=== PATIENT | male | born 1980 | race Caucasian/White ===

== ENCOUNTER 2023-05-16 10:52 | Emergency (ER) | payer MEDICAID ==
[~2023-05-16] VITALS: Ht 182.9 cm; Wt 89.0 kg
[2023-05-16 11:09] VITALS: BP 129/76
[2023-05-16] MEDS ORDERED: BUPR1FIL7 SL ×2 (12:04)
== END 2023-05-16 12:12 | disposition home or self-care (01) ==
LOC: ER 10:54
DX: F11.10 Opioid abuse, uncomplicated (principal); Z76.0 Encounter for issue of repeat prescription
CPT/HCPCS: 99281

== ENCOUNTER 2023-10-28 02:02 | Emergency (ER) | payer MEDICAID ==
[~2023-10-28] VITALS: Ht 182.9 cm; Wt 80.0 kg
[2023-10-28 02:12] VITALS: BP 119/82; PULSE 100; RESP 18; TEMP 98.2; O2SAT 100
[2023-10-28 02:41] LABS: BASOPHILS % (AUTO) 0.6 % (0-1); EOSINOPHILS # (AUTO) 0.1 X10'3 (0-0.9); EOSINOPHILS % (AUTO) 1.6 % (0-6); HEMATOCRIT 44.4 % (42.0-52.0); LYMPHOCYTES # (AUTO) 2.3 X10'3 (1.1-4.8); LYMPHOCYTES % (AUTO) 27.6 % (21-51); MEAN CORPUSCULAR HEMOGLOBIN 32.7 PG (27.0-31.0); MEAN CORPUSCULAR HGB CONC 33.7 g/dL (33.0-36.5); MEAN CORPUSCULAR VOLUME 96.9 FL (78-98); MONOCYTES # (AUTO) 0.9 X10'3 (0-0.9); MONOCYTES % (AUTO) 11.4 % (2-12); NEUTROPHILS # (AUTO) 4.9 X10'3 (1.8-7.7); NEUTROPHILS % (AUTO) 58.8 % (42-75); PLATELET COUNT 234 X10'3 (140-440); RED BLOOD COUNT 4.58 X10'6 (4.70-6.10); RED CELL DISTRIBUTION WIDTH 15.2 % (11.5-14.5); WHITE BLOOD COUNT 8.3 X10'3 (4.5-11.0)
[2023-10-28 02:47] LABS: ALANINE AMINOTRANSFERASE 77 U/L (12-78); ALBUMIN 4.1 G/DL (3.4-5.0); ALBUMIN/GLOBULIN RATIO 1.2 (1.1-1.5); ALKALINE PHOSPHATASE 135 IU/L (46-116); ANION GAP 11 (8-16); ASPARTATE AMINO TRANSFERASE 79 U/L (10-37); BILIRUBIN,TOTAL 0.4 MG/DL (0.1-1.0); BLOOD UREA NITROGEN 17 MG/DL (7-18); BUN/CREATININE RATIO 18.1 (10.0-20.0); CHLORIDE 101 MMOL/L (99-107); CREATININE 0.94 MG/DL (0.60-1.10); GLUCOSE 94 MG/DL (70-104); POTASSIUM 3.9 MMOL/L (3.5-5.1); SODIUM 139 MMOL/L (135-145); TOTAL CARBON DIOXIDE 26.8 MMOL/L (24-32); TOTAL PROTEIN 7.6 G/DL (6.4-8.2); eCRCL 111 ML/MIN; eGFR 88 ML/MIN
[2023-10-28 02:54] LABS: PRO BRAIN NATRIURETIC PEPTIDE 61 PG/ML (0-125)
== END 2023-10-28 04:08 | disposition left against medical advice (07) ==
LOC: ER 02:02
DX: R07.89 Other chest pain (principal); Z53.21 Procedure and treatment not carried out due to patient leaving prior to being seen by health care provider
CPT/HCPCS: 36415; 71045; 80053; 83880; 84484; 85025; 93005; 99281

== ENCOUNTER 2024-02-29 21:39 | Emergency (ER) | payer MEDICAID ==
[~2024-02-29] VITALS: Ht 183.5 cm; Wt 99.7 kg
[2024-02-29] MEDS ORDERED: CEPH-585 PO (21:56)
[2024-02-29] MEDS ORDERED: SULF1TAB49 PO (21:56)
[2024-02-29 22:04] VITALS: BP 133/70; PULSE 88; RESP 14; TEMP 98.1; O2SAT 96
== END 2024-02-29 22:06 | disposition home or self-care (01) ==
LOC: ER 21:40
DX: L03.116 Cellulitis of left lower limb (principal); I10 Essential (primary) hypertension
CPT/HCPCS: 99283

== ENCOUNTER 2025-04-03 08:42 | Emergency (ER) | payer MEDICAID ==
[~2025-04-03] VITALS: Ht 182.9 cm; Wt 89.0 kg
[2025-04-03 08:44] VITALS: BP 140/99; PULSE 98; RESP 16; TEMP 98.3; O2SAT 100
--- NOTE | 2025-04-03 10:43 | Physician Documentation ---
History of Present Illness ~ Chief Complaint: Foot pain Stated Complaint: FOOT PAIN Time Seen by MD: 09:23 Primary Medical Doctor: [facility] Patient is seen today with complaints of a painful bit of swelling on the sole of his left foot with red streaking moving proximally over the last few days. Patient states it is exquisitely tender to palpation in his has to use crutches to walk because he can not bear any weight on the ball of his left foot where the swelling mass is growing. Patient denies any sliver or injury to the foot. Patient denies any fever or chills or chest pain or shortness of breath or abdominal pain or nausea, vomiting, diarrhea. Patient has no other concern or complaint at this time. Tetanus witin 5 years: Yes Medication Reconciliation Allergies: Coded Allergies: No Known Allergies (Unverified , 05/17/23) Past Medical History Past Medical History: Hypertension Review of Systems Constitutional: Denies: chills, fever, weakness Eyes: Denies: pain, blurred vision ENT: Denies: ear pain, nose pain, throat pain, mouth pain Respiratory: Denies: cough, shortness of breath Cardiovascular: Denies: chest pain, palpitations Gastrointestinal: Denies: abdominal pain, nausea, vomiting Genitourinary: Denies: burning, dysuria Male Genitalia: Denies: penile discharge, testicular pain Neurological: Denies: headache, dizziness Musculoskeletal: Denies: pain, swelling Integumentary: Denies: rash, lesions Allergic/Immunologic: Denies: hives, itching Hematologic/Lymphatic: Denies: no symptoms reported Psychiatric: Denies: depression, anxiety Physical Exam Vital Signs: Temperature: 98.3, Source: Oral, Heart Rate: 98, Respiratory Rate: 16, BP: 140/99, Pulse Oximetry: 100, Weight: 89.000 Oxygen Flow Rate: 0 Physical Exam General: Awake and Alert, no acute distress. HEENT: Conjunctiva pink, Sclera clear, Mucus Membranes moist. Neck: Supple without masses and tenderness. Resp: Unlabored. Lungs clear to auscultation bilaterally. Heart: Regular Rate and rhythm, normal S1 and S2 without murmur, rub or gallop. Extremities: No cyanosis,clubbing or edema. Skin: Patient on exam has a swollen bulging mass/abscess on the sole of his left foot by the ball of his foot. I do not appreciate any foreign bodies. The area is significantly tender to palpation. The patient does have red streaking moving proximally up his foot and around to the top of his foot and up his leg. Patient is neurovascularly intact distally. Motor function is intact distally. Progress Results/Orders Results/Orders Vital Signs 04/03/25 08:44 Temp 98.3 Pulse 98 Resp 16 B/P (MAP) 140/99 Pulse Ox 100 O2 Flow Rate 0 Medical Decision Making Findings Patient is seen today with complaints of a painful bit of swelling on the sole of his left foot with red streaking moving proximally over the last few days. Patient states it is exquisitely tender to palpation in his has to use crutches to walk because he can not bear any weight on the ball of his left foot where the swelling mass is growing. Patient denies any sliver or injury to the foot. Patient denies any fever or chills or chest pain or shortness of breath or abdominal pain or nausea, vomiting, diarrhea. Patient has no other concern or complaint at this time. I did perform incision and drainage of the abscess of the sole of patient's left foot. Patient tolerated well. Area was cleansed and dressed with bulky bandage. Patient will perform daily dressing changes and will follow up with primary care in 2-5 days if no better as needed sooner. Patient given dose of Bactrim DS in the ED today. Prescription of Bactrim DS one tab twice a day sent to patient's pharmacy to be taken for 10 days. Patient will return to ED with any worsening, concerning or changing symptoms. Departure Disposition: 01 HOME / SELF CARE / HOMELESS Impression: Primary Impression: Abscess of foot excluding toes Condition: Improved Discharge Instructions: Cellulitis Additional Instructions: I did perform incision and drainage of the abscess of the sole of patient's left foot. Patient tolerated well. Area was cleansed and dressed with bulky bandage. Patient will perform daily dressing changes and will follow up with primary care in 2-5 days if no better as needed sooner. Patient given dose of Bactrim DS in the ED today. Prescription of Bactrim DS one tab twice a day sent to patient's pharmacy to be taken for 10 days. Patient will return to ED with any worsening, concerning or changing symptoms. Referrals: NO PRIMARY CARE PROVIDER (PCP) Prescriptions Sulfamethoxazole/Trimethoprim (Bactrim Ds Tablet) 800 Mg-160 Mg Tablet 1 TAB PO Q12H for 10 Days, #20 TAB Prov: WOLFGANG BADILLO 04/03/25 Signature Scribe Signature: No scribe Attestation: No scribe WOLFGANG BADILLO PAC April 03, 2025 10:43
[2025-04-03] MEDS: sulfamethoxazole/trimethoprim DS (800/160mg) tablet PO STA (12:05)
[2025-04-03] MEDS ORDERED: SULF1TAB49 PO (12:05)
== END 2025-04-03 12:28 | disposition home or self-care (01) ==
LOC: ER 08:42
DX: L02.612 Cutaneous abscess of left foot (principal); I10 Essential (primary) hypertension
CPT/HCPCS: 99283; J7030; 10060; A6449